=== PATIENT | female | born 1995 | race Caucasian/White ===

== ENCOUNTER 2016-11-20 13:44 | Emergency (ER) | payer OTHER ==
[~2016-11-20] VITALS: Wt 71.8 kg
[~2016-11-20 13:44] MED LIST: ACET500T98 PO; IBUP200C PO; KEN25O TOP; UDROBDM PO
--- NOTE | 2016-11-20 16:55 | RADRPT ---
PROCEDURE: XR Cervical Spine. CLINICAL INDICATION: Neck pain TECHNIQUE: Three views of the cervical spine were performed. COMPARISON: None. FINDINGS: The cervical vertebral bodies are normal in mineralization, architecture and alignment. No fracture or osseous lesion is identified. No subluxation is demonstrated. The disk spaces are unremarkable. The uncinate joints are unremarkable. The facet joints are unremarkable. No soft tissue abnormal ity is identified. IMPRESSION: Unremarkable cervical spine. RPTAT: HGDB .Dimitri Talley MD, MD Date Time Electronically viewed and signed by .Dimitri Talley MD, on 11/20/2016 16:54 .B/
[2016-11-20] MEDS ORDERED: ACET500C5 PO (17:42)
[2016-11-20] MEDS ORDERED: CYCL-319 PO (17:42)
[2016-11-20 17:57] VITALS: BP 121/79; PULSE 90; RESP 18; TEMP 98.1
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
== END 2016-11-20 17:59 | disposition home or self-care (01) ==
LOC: FTE 13:44
DX: M54.2 Cervicalgia (principal)
CPT/HCPCS: 72040; Z7502